=== PATIENT | female | born 1995 | race Two or more races ===

== ENCOUNTER 2016-11-26 17:30 | Emergency (ER) | payer MEDICAID, OTHER ==
[~2016-11-26] VITALS: Ht 180.3 cm; Wt 75.3 kg
[2016-11-26 20:00] VITALS: BP 125/62
[2016-11-26] MEDS ORDERED: IBUPROFEN 600 MG TAB PO ONE (20:15)
== END 2016-11-26 20:31 | disposition home or self-care (01) ==
LOC: ER 17:36
DX: S93.401A Sprain of unspecified ligament of right ankle, initial encounter (principal); X58.XXXA Exposure to other specified factors, initial encounter; Y93.89 Activity, other specified; Y99.8 Other external cause status; Y92.89 Other specified places as the place of occurrence of the external cause
CPT/HCPCS: 29515; 73610

== ENCOUNTER 2016-12-21 17:55 | Emergency (ER) | payer MEDICAID ==
[~2016-12-21] VITALS: Ht 180.3 cm; Wt 72.1 kg
[2016-12-21 19:06] LABS: Basophils # (auto) 0.1 uL; Basophils % (auto) 1.2 % (0.0-2.0); CONDITION Y; Eosinophils # (auto) 0.1 uL; Eosinophils % (auto) 1.3 % (0.0-7.0); Hematocrit 38.1 % (36.0-46.0); Hemoglobin 12.7 g/dL (12.2-16.2); Lymphocytes # (auto) 2.2 uL; Lymphocytes % (auto) 37.2 % (10.0-50.0); Mean Corpuscular Hemoglobin 30.2 pg (28.0-32.0); Mean Corpuscular Hgb Conc. 33.4 g/dL (32.0-36.0); Mean Corpuscular Volume 90.3 fL (80.0-100.0); Mean Platelet Volume 8.3 fL (7.4-10.4); Monocytes # (auto) 0.3 uL; Monocytes % (auto) 5.5 % (0.0-12.0); Neutrophils # (auto) 3.2 uL; Neutrophils % (auto) 54.8 % (37.0-80.0); Platelet Count (auto) 437 10^3/uL (140-450); Red Cell Distribution Width 13.3 % (11.6-16.0); White Blood Cell 5.8 10^3/uL (4.4-10.8)
[2016-12-21 19:46] LABS: Albumin 3.8 g/dL (3.4-5.0); Calcium 9.5 mg/dL (8.5-10.1)
[2016-12-21 19:49] LABS: BUN/Creatinine Ratio 21.3
[2016-12-21 19:57] LABS: Bilirubin, Total 0.8 mg/dL (0.2-1.0); Total Protein 8.3 g/dL (6.4-8.2)
[2016-12-22 00:36] VITALS: BP 132/73
== END 2016-12-22 01:11 | disposition home or self-care (01) ==
LOC: EDBD 17:55 → ER 18:02
DX: F41.9 Anxiety disorder, unspecified (principal); R30.0 Dysuria; J45.909 Unspecified asthma, uncomplicated
CPT/HCPCS: 36415; 80053; 84702; 85025